=== PATIENT | male | born 1975 | race Two or more races ===

== ENCOUNTER → 2017-07-24 | Outpatient (CLI) | payer OTHER | END | disposition home or self-care (01) | LOC: HKI 14:23 | DX: M22.2X2 Patellofemoral disorders, left knee (principal); M22.2X1 Patellofemoral disorders, right knee | CPT/HCPCS: 73564; 73564-50 ==

== ENCOUNTER 2018-10-22 06:14 | Day surgery (SDC) | payer OTHER ==
[2018-10-22] MEDS ORDERED: FENTAnyl 50 MCG/ML VIAL (08:39)
[2018-10-22] MEDS ORDERED: MIDAZOLAM 1 MG/ML 2 ML INJ ×3 (08:39)
== END 2018-10-22 11:37 | disposition home or self-care (01) ==
LOC: GIL 06:14
DX: K92.1 Melena (principal); K64.4 Residual hemorrhoidal skin tags; K57.30 Diverticulosis of large intestine without perforation or abscess without bleeding; K62.89 Other specified diseases of anus and rectum
CPT/HCPCS: 45380; 84703; 88305